=== PATIENT | male | born 1980 | race Two or more races ===

== ENCOUNTER 2020-04-09 11:59 | Emergency (ER) | payer SELFPAY ==
[2020-04-09 14:03] LABS: APPEARANCE,URINE CLEAR; BILIRUBIN,URINE NEGATIVE (NEGATIVE); COLOR,URINE STRAW; GLUCOSE, URINE NEGATIVE (NEGATIVE); KETONES,URINE NEGATIVE (NEGATIVE); LEUKOCYTE ESTERASE,URINE NEGATIVE (NEGATIVE); NITRITE,URINE NEGATIVE (NEGATIVE); PROTEIN,URINE 30 mg/dL (NEGATIVE); URINE SPECIFIC GRAVITY 1.005; UROBILINOGEN,URINE NEGATIVE mg/dL (<2.0)
[2020-04-09 14:09] LABS: ABSOLUTE EOSINOPHILS # (AUTO) 0.3 10^3/uL (0.0-0.6); ABSOLUTE MONOCYTES (AUTO) 0.4 10^3/uL (0.1-1.4); ABSOLUTE NEUT (AUTO) 3.1 10^3/uL (1.7-8.2); BASOPHILS % (AUTO) 0.5 % (0-2); EOSINOPHILS % (AUTO) 6.9 % (0-6); LYMPHOCYTES % (AUTO) 19.8 % (13-45); MEAN CORPUSCULAR HEMOGLOBIN 29.9 pg (27.0-33.4); MEAN CORPUSCULAR HGB CONC 35.4 g/dL (32.0-36.0); MEAN CORPUSCULAR VOLUME 84 fl (80-97); MONOCYTES % (AUTO) 8.8 % (3-13); PLATELET COUNT 240 10^3/uL (150-450); RED BLOOD COUNT 5.35 10^6/uL (4.35-5.55); TOTAL CELLS COUNTED % (AUTO) 100 %; WHITE BLOOD COUNT 4.8 10^3/uL (4.0-10.5)
[2020-04-09 14:13] LABS: ALBUMIN 4.8 g/dL (3.5-5.0); ALKALINE PHOSPHATASE 99 U/L (38-126); ANION GAP 7 (5-19); ASPARTATE AMINO TRANSFERASE 34 U/L (17-59); BILIRUBIN,TOTAL 0.6 mg/dL (0.2-1.3); BLOOD UREA NITROGEN 11 mg/dL (7-20); CALCIUM 9.7 mg/dL (8.4-10.2); CARBON DIOXIDE 32 mmol/L (22-30); CHLORIDE 101 mmol/L (98-107); GLUCOSE 104 mg/dL (75-110); POTASSIUM 4.1 mmol/L (3.6-5.0); TOTAL PROTEIN 8.1 g/dL (6.3-8.2)
--- NOTE | 2020-04-09 18:24 | ER Document Report ---
HPI - HPI Patient complains to provider of: Bilateral knee pain Time Seen by Provider: 04/09/20 13:01 Onset: Other - 2 months Pain Level: 5 Associated Symptoms: None - REPRODUCTIVE Reproductive: DENIES: : Past Medical History - General Information source: Patient - Social History Smoking Status: Unknown if Ever Smoked Frequency of alcohol use: Occasional Drug Abuse: None Family History: Reviewed & Not Pertinent Patient has homicidal ideation: No - Past Medical History Cardiac Medical History: Reports: Hx Hypertension - Immunizations Hx Diphtheria, Pertussis, Tetanus Vaccination: No Vertical Provider Document - CONSTITUTIONAL Agree With Documented VS: Yes - HEENT HEENT: Atraumatic, Conjuctival Injection, Normocephalic, PERRLA - RESPIRATORY Respiratory: Breath Sounds Normal - CARDIOVASCULAR Cardiovascular: Regular Rate, Regular Rhythm - GI/ABDOMEN Gastrointestinal: Abdomen Soft, Abdomen Non-Tender - BACK Back: Normal Inspection - MUSCULOSKELETAL/EXTREMETIES Musculoskeletal/Extremeties: MAEW - NEURO Level of Consciousness: Awake, Alert Motor/Sensory: No Motor Deficit, No Sensory Deficit - DERM Integumentary: Warm, Dry Course - Re-evaluation Re-evalutation: 04/09/20 18:22 Patient has no obvious injury no excessive warmth no tenderness no signs of infection labs were drawn patient is ambulatory with a rhythmic and steady gait he states he does have some discomfort in his knees will provide him with some medication to help with some discomfort comfort and follow-up with a local clinic. - Vital Signs Vital signs: Temp Pulse Resp BP Pulse Ox 98.4 F 72 18 131/86 H 99 04/09/20 12:55 04/09/20 12:10 04/09/20 12:10 04/09/20 12:10 04/09/20 12:10 - Laboratory Result Diagrams: 04/09/20 13:45 04/09/20 13:45 Laboratory results interpreted by me: 04/09/20 04/09/20 04/09/20 13:45 13:45 13:45 Eos % (Auto) 6.9 H Carbon Dioxide 32 H Urine Protein 30 H Discharge - Discharge Clinical Impression: Knee pain Qualifiers: Chronicity: acute Laterality: bilateral Qualified Code(s): M25.561 - Pain in right knee; M25.562 - Pain in left knee Disposition: HOME, SELF-CARE Instructions: Knee Exercise Program ([facility]) Prescriptions: Diclofenac Sodium [Voltaren 50 mg Tablet.] 50 mg PO Q12 PRN #20 tablet. PRN Reason: Referrals: [facility] [NO LOCAL MD] - Follow up as needed
[2020-04-09 18:28] VITALS: BP 124/85
== END 2020-04-09 18:27 | disposition home or self-care (01) ==
LOC: ER 11:59
DX: M25.562 Pain in left knee (principal); M25.561 Pain in right knee; I10 Essential (primary) hypertension
CPT/HCPCS: 36415; 80053; 81001; 85025; 99283